=== PATIENT | female | born 1935 | race Caucasian/White ===

== ENCOUNTER → 2017-01-03 | Outpatient (CLI) | payer MEDICARE | END | disposition home or self-care (01) | LOC: CFH 08:25 | PROVIDERS: ATTEND Internal Medicine | DX: I35.8 Other nonrheumatic aortic valve disorders (principal); I34.0 Nonrheumatic mitral (valve) insufficiency; I07.1 Rheumatic tricuspid insufficiency; I35.1 Nonrheumatic aortic (valve) insufficiency | CPT/HCPCS: 93306 ==

== ENCOUNTER 2018-12-13 18:00 | Inpatient (IN) | payer MEDICARE ==
[~2018-12-13] VITALS: Ht 167.6 cm; Wt 55.3 kg
--- NOTE | 2018-12-13 18:00 | NUR ---
Pt presents to ED, via ambulance, for increased difficulty breathing/SOB, congestion, and chest tightness, increased b/l leg swelling. RA sat 70% upon EMS arrival. Pt reports hx of COPD and asthma, has been needing to sleep in a chair and using her albuterol continuously today. Pt given 1 albuterol and 2 duoneb enroute and lung sound have changed from absent in the right and wheezy in the left to wheezes throughout. Pt becomes agitated with mask and upon removing the mask decreases O2 sat to 68%. Mask replaced at 10 lpm and pt up to 100% within a few minutes.
--- NOTE | 2018-12-13 18:10 | NUR ---
Dr. Liu at bedside to evaluate pt.
--- NOTE | 2018-12-13 18:18 | NUR ---
RT at bedside. Pt placed on NC at 4 LPM, O2 sat noted to be 90%.
--- NOTE | 2018-12-13 18:22 | NUR ---
LAB AT BEDSIDE, EDT AT BEDSIDE FOR EKG.
[2018-12-13] MEDS ORDERED: DILT180C72 PO (18:25)
[2018-12-13] MEDS ORDERED: preservision PO (18:25)
[2018-12-13] MEDS ORDERED: ALBU18HF INH (18:25)
--- NOTE | 2018-12-13 18:27 | NUR ---
SBAR report given to primary RNTheodora.
[2018-12-13] MEDS ORDERED: ALBUTEROL/IPRATROPIUM 2.5MG/0.5MG, 3 ML NPPB PRN (18:30)
[2018-12-13] MEDS ORDERED: SODIUM CHLORIDE FLUSH 10ML SYR IVF ONE (18:30)
[2018-12-13] MEDS ORDERED: ALBUTEROL/IPRATROPIUM 2.5MG/0.5MG, 3 ML ONE (18:42)
[2018-12-13 19:02] LABS: BASOPHILS # (AUTO) 0.05 x10^3/uL (0-0.1); BASOPHILS % (AUTO) 1 % (0-1); EOSINOPHILS # (AUTO) 0.09 x10^3/uL (0-0.4); EOSINOPHILS % (AUTO) 1 % (1-7); LYMPHOCYTES # (AUTO) 0.88 x10^3/uL (1-3.4); LYMPHOCYTES % (AUTO) 10 % (22-44); MD MORPH REVIEW ONLY; MEAN CORPUSCULAR HGB CONC 31.3 g/dL (32.4-35.8); MEAN CORPUSCULAR VOLUME 83.1 fL (80-100); MEAN PLATELET VOLUME 10.7 fL (7.4-10.4); MONOCYTES # (AUTO) 0.48 x10^3/uL (0.2-0.8); MONOCYTES % (AUTO) 6 % (2-9); NEUTROPHILS # (AUTO) 7.23 x10^3/uL (1.8-6.8); NEUTROPHILS % (AUTO) 83 % (42-75); PLATELET COUNT 187 x10^3/uL (130-400); RED BLOOD COUNT 3.13 x10^6/uL (3.82-5.3); RED CELL DISTRIBUTION WIDTH 25.7 % (9.6-15.2)
[2018-12-13 19:04] LABS: ALANINE AMINOTRANSFERASE 16 U/L (12-78); ALBUMIN 3.6 g/dL (3.4-5.0); ANION GAP 5 mmol/L (5-15); CALCIUM 8.4 mg/dL (8.5-10.1); CHLORIDE 108 mmol/L (98-107); CREATININE 0.43 mg/dL (0.55-1.02)
--- NOTE | 2018-12-13 19:08 | NUR ---
AT BEDSIDE EXAMINING PT. PT AT SIDE OF BED TRYING TO RELIEVE CRAMPING IN RIGHT LEG. PT CONTINUES TO HAVE LABORED BREATHING. LAB OBTAINING ABG. TALKING WITH PT ABOUT POSSIBLE INTUBATION
[2018-12-13 19:09] LABS: ALKALINE PHOSPHATASE 145 U/L (45-117); BILIRUBIN,TOTAL 1.1 mg/dL (0.2-1.0)
--- NOTE | 2018-12-13 19:12 | NUR ---
PT ON HIGH BETH OXYGEN 60%, 40 L
[2018-12-13 19:15] LABS: HYPOCHROMIA 1+; OVALOCYTES 1+; POLYCHROMASIA 1+
[2018-12-13 19:16] LABS: ANISOCYTOSIS 1+; MICROCYTOSIS 1+
[2018-12-13] MEDS ORDERED: FUROSEMIDE 40 MG/4 ML ONE (19:16)
[2018-12-13 19:17] LABS: <PLATELET ESTIMATE> ADEQUATE; <PLT MORPHOLOGY> NORMAL PLT MORPH; ACANTHOCYTES 1+; TEAR DROPS 1+
[2018-12-13] MEDS ORDERED: FUROSEMIDE 40 MG/4 ML IV ONE (19:30)
[2018-12-13] MEDS ORDERED: SODIUM CHLORIDE FLUSH 10ML SYR IVF PRN (20:00)
--- NOTE | 2018-12-13 20:13 | NUR ---
ONTO BEDPAN WITH ASSISTANCE. WORK OF BREATHING IMPROVED. CONTINUE TO MONITOR
[2018-12-13] MEDS ORDERED: TRAZODONE 50MG TABLET PO PRN (20:30)
[2018-12-13] MEDS ORDERED: ONDANSETRON ODT 4 MG PO PRN (20:30)
--- NOTE | 2018-12-13 20:35 | NUR ---
REPORT CALLED TO GAUDENCIO HOFFMAN FOR ROOM [id number].
[2018-12-13] MEDS ORDERED: FUROSEMIDE 40 MG/4 ML IV SCH (21:00)
[2018-12-13 21:24] VITALS: BP 132/59
[2018-12-13 22:21] VITALS: BP 132/59
[2018-12-13] MEDS: SODIUM CHLORIDE FLUSH 10ML SYR IVF SCH (22:43)
[2018-12-13] MEDS: HYDROcodone/APAP 5/325 TABLET PO PRN (23:51)
[2018-12-14] MEDS ORDERED: FUROSEMIDE 40 MG/4 ML IV SCH (03:00)
[2018-12-14 03:31] VITALS: BP 113/51
[2018-12-14] MEDS: HYDROcodone/APAP 5/325 TABLET PO PRN (03:55)
[2018-12-14 06:07] LABS: MEAN CORPUSCULAR HEMOGLOBIN 25.5 pg (27.0-34.8); MEAN CORPUSCULAR HGB CONC 30.9 g/dL (32.4-35.8); MEAN CORPUSCULAR VOLUME 82.5 fL (80-100); MEAN PLATELET VOLUME 10.9 fL (7.4-10.4); PLATELET COUNT 177 x10^3/uL (130-400); RED BLOOD COUNT 2.96 x10^6/uL (3.82-5.3); RED CELL DISTRIBUTION WIDTH 26.4 % (9.6-15.2)
[2018-12-14 06:11] LABS: ANION GAP 5 mmol/L (5-15); CALCIUM 7.7 mg/dL (8.5-10.1); CHLORIDE 100 mmol/L (98-107)
[2018-12-14 06:15] LABS: ALANINE AMINOTRANSFERASE 16 U/L (12-78); ALKALINE PHOSPHATASE 137 U/L (45-117); BILIRUBIN,TOTAL 0.8 mg/dL (0.2-1.0); TOTAL PROTEIN 7.5 g/dL (6.4-8.2)
[2018-12-14 06:34] LABS: <PLATELET ESTIMATE> ADEQUATE; ANISOCYTOSIS 1+; BASOPHILS # (AUTO) 0.01 x10^3/uL (0-0.1); BASOPHILS % (AUTO) 0 % (0-1); EOSINOPHILS % (AUTO) 0 % (1-7); HYPOCHROMIA 1+; LARGE PLATELETS 1+; LYMPHOCYTES # (AUTO) 0.35 x10^3/uL (1-3.4); LYMPHOCYTES % (AUTO) 7 % (22-44); MD MORPH REVIEW ONLY; MICROCYTOSIS 1+; MONOCYTES # (AUTO) 0.08 x10^3/uL (0.2-0.8); MONOCYTES % (AUTO) 2 % (2-9); NEUTROPHILS # (AUTO) 4.36 x10^3/uL (1.8-6.8); NEUTROPHILS % (AUTO) 91 % (42-75); OVALOCYTES 1+; POLYCHROMASIA 1+; TEAR DROPS 1+
[2018-12-14] MEDS ORDERED: ALBUTEROL/IPRATROPIUM 2.5MG/0.5MG, 3 ML NPPB SCH (07:00)
[2018-12-14 07:43] VITALS: BP 110/42
[2018-12-14] MEDS: ENOXAPARIN 40 MG/0.4 ML SQ SCH (09:00)
[2018-12-14] MEDS: SENNA/DOCUSATE TABLET PO SCH (09:00)
[2018-12-14] MEDS: SPIRONOLACTONE 25 MG TABLET PO SCH (09:00)
[2018-12-14] MEDS: SODIUM CHLORIDE FLUSH 10ML SYR IVF SCH ×2 (09:01→19:48)
[2018-12-14 15:13] VITALS: BP 110/57
[2018-12-14] MEDS ORDERED: FUROSEMIDE 20 MG TABLET PO SCH (17:00)
[2018-12-14 17:58] VITALS: BP 138/67
[2018-12-14] MEDS: FERROUS GLUCONATE 324 MG TABLET PO SCH (18:00)
[2018-12-14] MEDS: POTASSIUM CHLORIDE 20 MEQ TAB.ER.PRT PO SCH (18:00)
[2018-12-14] MEDS: FUROSEMIDE 20 MG/2 ML IV SCH (18:01)
[2018-12-14] MEDS ORDERED: ALBUTEROL/IPRATROPIUM 2.5MG/0.5MG, 3 ML ONE (18:24)
[2018-12-14] MEDS: ALBUTEROL/IPRATROPIUM 2.5MG/0.5MG, 3 ML NPPB SCH (18:31)
[2018-12-14 19:03] VITALS: BP 122/61
[2018-12-15 02:00] VITALS: BP 126/55
[2018-12-15 04:46] LABS: OCCULT BLOOD NEGATIVE (NEGATIVE)
[2018-12-15 04:51] LABS: MEAN CORPUSCULAR HEMOGLOBIN 26.5 pg (27.0-34.8); MEAN CORPUSCULAR HGB CONC 31.8 g/dL (32.4-35.8); MEAN CORPUSCULAR VOLUME 83.4 fL (80-100); MEAN PLATELET VOLUME 10.5 fL (7.4-10.4); PLATELET COUNT 179 x10^3/uL (130-400); RED BLOOD COUNT 3.17 x10^6/uL (3.82-5.3); RED CELL DISTRIBUTION WIDTH 25.5 % (9.6-15.2)
[2018-12-15 05:01] LABS: % IRON SATURATION 13 % (20-55); CREATININE 0.45 mg/dL (0.55-1.02); IRON LEVEL 43 mcg/dL (50-170); TOTAL IRON BINDING CAPACITY 337 mcg/dL (250-450)
[2018-12-15 05:11] LABS: ANION GAP 3 mmol/L (5-15); CHLORIDE 104 mmol/L (98-107)
[2018-12-15 05:44] LABS: BASOPHILS # (AUTO) 0.02 x10^3/uL (0-0.1); BASOPHILS % (AUTO) 0 % (0-1); EOSINOPHILS # (AUTO) 0.11 x10^3/uL (0-0.4); EOSINOPHILS % (AUTO) 1 % (1-7); LYMPHOCYTES # (AUTO) 1.16 x10^3/uL (1-3.4); LYMPHOCYTES % (AUTO) 14 % (22-44); MD SCAN; MONOCYTES # (AUTO) 0.66 x10^3/uL (0.2-0.8); MONOCYTES % (AUTO) 8 % (2-9); NEUTROPHILS # (AUTO) 6.21 x10^3/uL (1.8-6.8); NEUTROPHILS % (AUTO) 76 % (42-75)
[2018-12-15 07:37] VITALS: BP 142/82
[2018-12-15 07:45] VITALS: BP 120/56
[2018-12-15] MEDS: FUROSEMIDE 20 MG/2 ML IV SCH ×2 (08:50→18:01)
[2018-12-15] MEDS: POTASSIUM CHLORIDE 20 MEQ TAB.ER.PRT PO SCH ×2 (08:50→18:01)
[2018-12-15] MEDS: SENNA/DOCUSATE TABLET PO SCH (08:51)
[2018-12-15] MEDS: FERROUS GLUCONATE 324 MG TABLET PO SCH ×2 (08:51→18:01)
[2018-12-15] MEDS: SODIUM CHLORIDE FLUSH 10ML SYR IVF SCH ×2 (08:51→21:38)
[2018-12-15] MEDS: SPIRONOLACTONE 25 MG TABLET PO SCH (08:51)
[2018-12-15] MEDS: ENOXAPARIN 40 MG/0.4 ML SQ SCH (09:01)
[2018-12-15] MEDS: ALBUTEROL/IPRATROPIUM 2.5MG/0.5MG, 3 ML NPPB SCH (09:11)
[2018-12-15] MEDS ORDERED: MAGNESIUM CITRATE 300ML ORAL SOL PO PRN (13:00)
[2018-12-15] MEDS ORDERED: IRON DEXTRAN COMPLEX 25 MG in SODIUM CHLORIDE 0.9% 50 ML IV ONE (13:00)
[2018-12-15] MEDS ORDERED: EPINEPHRINE 1 MG/ML, 1ML SQ PRN (13:00)
[2018-12-15 13:31] VITALS: BP 139/58
[2018-12-15] MEDS: ACETAMINOPHEN 325 MG TABLET PO PRN ×2 (13:54→21:38)
[2018-12-15] MEDS ORDERED: IRON DEXTRAN COMPLEX 1,600 MG in SODIUM CHLORIDE 0.9% 250 ML IV ONE ×2 (14:00→15:30)
[2018-12-15 18:00] VITALS: BP 121/63
[2018-12-15 19:05] VITALS: BP 113/58
[2018-12-16 00:42] VITALS: BP 109/70
[2018-12-16 05:53] LABS: ALBUMIN 2.7 g/dL (3.4-5.0); CALCIUM 8.3 mg/dL (8.5-10.1); CHOL/HDL RATIO 1.6; CHOLESTEROL, TOTAL 110 mg/dL (140-239); CREATININE 0.37 mg/dL (0.55-1.02); HDL CHOL % 61 % (28-40); HDL CHOLESTEROL (DIRECT) 67 mg/dL (40-60); LDL CHOLESTEROL,CALCULATED 23 mg/dL (54-169); LDL/HDL RATIO 0.3 (0.5-3.0); TRIGLYCERIDES 101 mg/dL (50-200); VLDL CHOLESTEROL 20 mg/dL (0-25)
[2018-12-16 06:05] LABS: ANION GAP 4 mmol/L (5-15); CHLORIDE 105 mmol/L (98-107)
[2018-12-16 07:47] LABS: HEMOGLOBIN A1C 4.9 % (4.2-6.3)
[2018-12-16 08:07] VITALS: BP 137/65
[2018-12-16] MEDS: SODIUM CHLORIDE FLUSH 10ML SYR IVF SCH ×2 (08:16→21:08)
[2018-12-16] MEDS: FERROUS GLUCONATE 324 MG TABLET PO SCH ×2 (08:16→16:54)
[2018-12-16] MEDS: SPIRONOLACTONE 25 MG TABLET PO SCH (08:16)
[2018-12-16] MEDS: POTASSIUM CHLORIDE 20 MEQ TAB.ER.PRT PO SCH (08:16)
[2018-12-16] MEDS: FUROSEMIDE 20 MG/2 ML IV SCH (08:17)
[2018-12-16] MEDS: SENNA/DOCUSATE TABLET PO SCH (08:17)
[2018-12-16] MEDS: ENOXAPARIN 40 MG/0.4 ML SQ SCH (08:17)
[2018-12-16] MEDS: ACETAMINOPHEN 325 MG TABLET PO PRN ×2 (11:40→21:08)
[2018-12-16] MEDS ORDERED: TRAZ50TA66 PO (12:53)
[2018-12-16] MEDS ORDERED: SENN-177 PO (12:53)
[2018-12-16] MEDS ORDERED: SPIR25TA PO (12:53)
[2018-12-16] MEDS ORDERED: ACET325T14 PO (12:53)
[2018-12-16] MEDS ORDERED: FURO20TA3 PO (12:53)
[2018-12-16 14:27] VITALS: BP 96/61
[2018-12-16 18:47] VITALS: BP 103/55
[2018-12-17 01:55] VITALS: BP 116/66
[2018-12-17] MEDS: ACETAMINOPHEN 325 MG TABLET PO PRN (05:22)
[2018-12-17] MEDS: SENNA/DOCUSATE TABLET PO SCH (09:00)
[2018-12-17] MEDS: SODIUM CHLORIDE FLUSH 10ML SYR IVF SCH (09:00)
[2018-12-17] MEDS ORDERED: FUROSEMIDE 20 MG TABLET PO SCH (09:00)
[2018-12-17 09:10] VITALS: BP 94/63
[2018-12-17] MEDS: SPIRONOLACTONE 25 MG TABLET PO SCH (09:24)
[2018-12-17] MEDS: FERROUS GLUCONATE 324 MG TABLET PO SCH ×2 (09:24→17:00)
[2018-12-17] MEDS: ENOXAPARIN 40 MG/0.4 ML SQ SCH (09:25)
[2018-12-17 14:30] VITALS: BP 100/66
== END 2018-12-17 18:34 | DRG 306 ==
LOC: ED 20:05 → EDIP 20:18 → 5SO 21:22 → 3NE 12-16 17:08
PROVIDERS: ADMIT Internal Medicine; ATTEND Internal Medicine
DX: I35.2 Nonrheumatic aortic (valve) stenosis with insufficiency (principal); J96.01 Acute respiratory failure with hypoxia; I50.31 Acute diastolic (congestive) heart failure; J44.1 Chronic obstructive pulmonary disease with (acute) exacerbation; I11.0 Hypertensive heart disease with heart failure; D50.9 Iron deficiency anemia, unspecified; D63.8 Anemia in other chronic diseases classified elsewhere; I49.9 Cardiac arrhythmia, unspecified; E87.6 Hypokalemia; I08.0 Rheumatic disorders of both mitral and aortic valves; G47.00 Insomnia, unspecified; I48.91 Unspecified atrial fibrillation; Z87.891 Personal history of nicotine dependence; Z90.710 Acquired absence of both cervix and uterus; Z99.81 Dependence on supplemental oxygen
CPT/HCPCS: 36415; 36600; 71045; 80048; 80053; 80061; 82040; 82272; 82728; 82803; 83036; 83540; 83550; 83605; 83735; 83880; 84100; 84484; 85025; 87040; 93005; 93306; 94640; 96374; G0378; J1650; J1750; J1940; J7620; J7050; J7512

== ENCOUNTER 2019-02-11 08:20 | Day surgery (SDC) | payer MEDICARE ==
[2019-02-09 15:07] VITALS: BP 149/62
[2019-02-09 15:13] LABS: MEAN CORPUSCULAR HEMOGLOBIN 28.2 pg (27.0-34.8); MEAN CORPUSCULAR HGB CONC 31.7 g/dL (32.4-35.8); MEAN CORPUSCULAR VOLUME 89.2 fL (80-100); PLATELET COUNT 225 x10^3/uL (130-400); RED BLOOD COUNT 4.03 x10^6/uL (3.82-5.3); RED CELL DISTRIBUTION WIDTH 20.2 % (9.6-15.2)
[2019-02-09 15:19] LABS: ANION GAP 5 mmol/L (5-15); CHLORIDE 103 mmol/L (98-107); CREATININE 0.43 mg/dL (0.55-1.02)
[2019-02-09 16:04] LABS: BASOPHILS # (AUTO) 0.02 x10^3/uL (0-0.1); BASOPHILS % (AUTO) 0 % (0-1); EOSINOPHILS # (AUTO) 0.14 x10^3/uL (0-0.4); EOSINOPHILS % (AUTO) 1 % (1-7); LYMPHOCYTES # (AUTO) 1.23 x10^3/uL (1-3.4); LYMPHOCYTES % (AUTO) 12 % (22-44); MD SCAN; MONOCYTES % (AUTO) 16 % (2-9); NEUTROPHILS # (AUTO) 7.35 x10^3/uL (1.8-6.8); NEUTROPHILS % (AUTO) 70 % (42-75)
[~2019-02-11] VITALS: Ht 170.2 cm; Wt 54.1 kg
[~2019-02-11 08:20] MED LIST: ACET325T14 PO; ALBU18HF INH; DILT180C PO; DILT180C72 PO; FURO20TA3 PO; Oxygen INH; SENN-177 PO; SPIR25TA PO; TRAZ50TA66 PO; VIT1CAPS42 PO; preservision PO
[2019-02-11] MEDS ORDERED: SODIUM CHLORIDE 0.9% 1,000 ML IV ONE (09:00)
[2019-02-11] MEDS ORDERED: LIDOCAINE 1%, 20ML ONE (09:29)
[2019-02-11] MEDS ORDERED: MIDAZOLAM 1 MG/ML, 2ML ONE (09:33)
[2019-02-11] MEDS ORDERED: FENTANYL PF 100 MCG/2ML ONE (09:34)
[2019-02-11] MEDS ORDERED: SODIUM CHLORIDE 0.9% 1,000 ML IV SCH (10:29)
[2019-02-11] MEDS ORDERED: IBUPROFEN 200 MG TABLET ONE (13:04)
[2019-02-11] MEDS ORDERED: IBUPROFEN 200 MG TABLET PO ONE (13:30)
== END 2019-02-11 16:14 | disposition home or self-care (01) ==
LOC: CACL 08:20
PROVIDERS: ATTEND Internal Medicine Cardiovascular Disease
DX: I25.10 Atherosclerotic heart disease of native coronary artery without angina pectoris (principal); I10 Essential (primary) hypertension; D64.9 Anemia, unspecified; J44.9 Chronic obstructive pulmonary disease, unspecified; Z88.0 Allergy status to penicillin; Z88.8 Allergy status to other drugs, medicaments and biological substances; Z91.040 Latex allergy status; Z87.891 Personal history of nicotine dependence
CPT/HCPCS: 36415; 80048; 85025; 93454; 99156; C1769; C1894; J2250; J3010; Q9967

== ENCOUNTER 2019-02-18 11:46 | Outpatient (CLI) | payer MEDICARE ==
[2019-02-18] MEDS ORDERED: METOPROLOL 1 MG/ML, 5ML ONE (13:42)
[2019-02-18] MEDS ORDERED: OMNIPAQUE 350 MG/ML, 150 ML BOTTLE ONE (14:37)
== END 2019-02-18 23:59 | disposition home or self-care (01) ==
LOC: CVU 11:46
PROVIDERS: ATTEND Internal Medicine Cardiovascular Disease
DX: I65.21 Occlusion and stenosis of right carotid artery (principal); C78.7 Secondary malignant neoplasm of liver and intrahepatic bile duct; J43.2 Centrilobular emphysema; I10 Essential (primary) hypertension; J44.9 Chronic obstructive pulmonary disease, unspecified; D64.9 Anemia, unspecified; Z88.0 Allergy status to penicillin
CPT/HCPCS: 71275; 74174; 93880; 94060; 94726; 94729; Q9967